=== PATIENT | female | born 1955 | race Caucasian/White ===

== ENCOUNTER → 2016-03-07 | Outpatient (CLI) | payer OTHER ==
[~2016-03-07] MED LIST: ATEN-173 PO; LRT5 PO
[2016-03-07 13:22] LABS: BLOOD UREA NITROGEN 25 mg/dl (7-18); BUN/CREATININE RATIO 24.7 (10-20); CALCIUM 9.1 mg/dl (8.5-10.1); CARBON DIOXIDE 25 mmol/L (21-32); CHLORIDE 106 mmol/L (98-107); GLUCOSE 85 mg/dl (70-99); POTASSIUM 4.2 mmol/L (3.5-5.1); SODIUM 140 mmol/L (136-145)
[2016-03-07 13:25] LABS: CHOLESTEROL 241 mg/dl (0-200); CHOLESTEROL/HDL RATIO 4.4; HDL CHOLESTEROL 55 mg/dl; LDL CHOLESTEROL CALCULATED 158 mg/dl; TRIGLYCERIDES 139 mg/dl (0-150); VERY LOW DENSITY LIPOPROT CALC 28 mg/dl
== END | disposition home or self-care (01) ==
LOC: C.LABPVFM 07:32
PROVIDERS: ATTEND Nurse Practitioner
DX: I10 Essential (primary) hypertension (principal); E78.00 Pure hypercholesterolemia, unspecified

== ENCOUNTER → 2016-03-11 | Outpatient (CLI) | payer OTHER | END | disposition home or self-care (01) | LOC: C.LABPVFM 09:25 | PROVIDERS: ATTEND Nurse Practitioner | DX: Z11.59 Encounter for screening for other viral diseases (principal) ==

== ENCOUNTER → 2016-04-28 | Outpatient (CLI) | payer OTHER ==
--- NOTE | 2016-04-28 13:55 | MAMMOGRAPHY REPORT ---
BILATERAL DIGITAL SCREENING MAMMOGRAM WITH CAD: 04/28/2016 CLINICAL HISTORY: Routine screening examination. TECHNIQUE: Bilateral CC and MLO views were obtained. Current study was also evaluated with a Comput er Aided Detection (CAD) system. COMPARISON: Comparison is made to exams dated: 04/25/2015 mammogram, 04/20/2014 mammogram, 02/12/2012 m ammogram, 12/06/2008 mammogram, 02/06/2011 mammogram, and 01/30/2010 mammogram - [facility]. BREAST COMPOSITION: The tissue of both breasts is almost entirely fatty. FINDINGS: There are a few scattered stable benign-appearing microcalcifications in the breasts. No suspicious mass, architectural distortion or cluster of microcalcifications is seen. IMPRESSION: ACR BI-RADS CATEGORY 1: NEGATIVE There is no mammographic evidence of malignancy. A 1 year screening mammogram is recommended. The p atient will receive written notification of the results. Approximately 10% of breast cancers are not detected with mammography. A negative mammographic repor t should not delay biopsy if a clinically suggestive mass is present. Alicja Brownlee M.D. ay/:04/28/2016 12:54:32 Adjuster Arbitrator: Elo RAUSCH(Sanjeev)(Rudy), [facility] letter sent: Normal 1/2 BI-RADS Code: ACR BI-RADS Category 1: Negative
--- NOTE | 2016-05-15 11:57 | CODING QUERY MEDICAL NECESSITY ---
SUPPORTING DIAGNOSIS NEEDED A supporting diagnosis is required for the test/procedure performed on this patient in order for us to be reimbursed by the patient's insurance. Please provide a supporting diagnosis for the following test/procedure listed below next to the test name along with your signature. *If there is no additional diagnosis for this patient that would support the following test/procedure please document that below next to the test/procedure. Test(s)/Procedure(s) that require a supporting diagnosis: * DXA BONE DENSITY DIAGNOSIS: * DOS: 04/28/16 Provider Signature: Date: Thank you Brandy Stark Health Information Management Once completed, please kindly fax back to [phone] For questions please call [phone]
== END | disposition home or self-care (01) ==
LOC: C.MAMM 08:54
PROVIDERS: ATTEND Nurse Practitioner
DX: Z00.00 Encounter for general adult medical examination without abnormal findings (principal); Z12.31 Encounter for screening mammogram for malignant neoplasm of breast; Z87.81 Personal history of (healed) traumatic fracture; Z78.0 Asymptomatic menopausal state

== ENCOUNTER → 2016-08-29 | Outpatient (CLI) | payer OTHER ==
[2016-08-29 13:22] LABS: BLOOD UREA NITROGEN 20 mg/dl (7-18); BUN/CREATININE RATIO 22.2 (10-20); CALCIUM 9.2 mg/dl (8.5-10.1); CARBON DIOXIDE 28 mmol/L (21-32); CHLORIDE 109 mmol/L (98-107); CHOLESTEROL 123 mg/dl (0-200); CREATININE 0.91 mg/dl (0.60-1.20); GLUCOSE 89 mg/dl (70-99); POTASSIUM 4.5 mmol/L (3.5-5.1); SODIUM 142 mmol/L (136-145); TRIGLYCERIDES 68 mg/dl (0-150); VERY LOW DENSITY LIPOPROT CALC 14 mg/dl
[2016-08-29 13:25] LABS: CHOLESTEROL/HDL RATIO 2.5; HDL CHOLESTEROL 50 mg/dl; LDL CHOLESTEROL CALCULATED 59 mg/dl
== END | disposition home or self-care (01) ==
LOC: C.LABPVFM 07:30
PROVIDERS: ATTEND Nurse Practitioner
DX: E78.00 Pure hypercholesterolemia, unspecified (principal); I10 Essential (primary) hypertension

== ENCOUNTER 2017-02-04 22:45 | Emergency (ER) | payer OTHER ==
[2017-02-04 22:48] VITALS: TEMP 36.8
--- NOTE | 2017-02-04 23:03 | EMERGENCY ROOM VISIT NOTE ---
ED Visit Note First contact with patient: 23:01 CHIEF COMPLAINT: Bleeding vein on right leg HISTORY OF PRESENT ILLNESS: This 59-year-old female presents to the emergency room with complaint of bleeding varicose vein that started at approximately 9 PM this evening. Patient has some mental delay at baseline and lives with her nephew, who is her POA, she went to him when she noticed blood on her pants. The bleeding stopped shortly after the incident. Patient denies any pain to the area. She has several varicose veins on her leg. She denies any previous bleeding from varicose veins in the past. No fevers, vomiting, recent illness, chest pain, shortness of breath. She does not take any blood thinners. REVIEW OF SYSTEMS: Review of systems is limited due to patient's mental state , her nephew provides much of the history. PMH: Reviewed in chart SOCIAL HISTORY: Patient living at home with her nephew. Non-smoker, no alcohol or drug use. PHYSICAL EXAM: Vital Signs: Reviewed Nurse's notes. Patient is alert, no distress, pleasant and cooperative during exam. There are multiple small varicose veins noted on the right lateral thigh, pinpoint area of scabbing noted that is suspected to be where the bleeding came from. There is no active bleeding. There is no tenderness to palpation. EMERGENCY DEPARTMENT COURSE: I examined the patient. There is no active bleeding from varicose vein. The area was gently cleansed using chlorhexidine scrub, then 3 layers of Dermabond were applied over the wound. The patient tolerated this well, with hemostasis preserved. The patient's nephew was instructed regarding signs of infection to monitor for as well as management if the bleeding should return. He was also encouraged to follow up with the PCP for further management. Patient's nephew verbalized understanding of all discharge instructions and plan. The patient was discharged home in stable condition with her nephew. Medication Reconciliation: I attest that I have personally reviewed the patient' s current medication list. Blood pressure screening: The patient was found to have an elevated blood pressure and was referred to their primary doctor for recheck and further treatment. I discussed the patient with Dr. Hood, who also independently examined the patient and agrees with my assessment and plan. Current/Historical Medications Scheduled Atenolol (Tenormin), 25 MG PO DAILY Atorvastatin (Lipitor), 40 MG PO DAILY Allergies Uncoded Allergies: NKDA (Allergy, Mild, 08/21/07) Vital Signs Date Time Temp Pulse Resp B/P (MAP) Pulse Ox O2 Delivery O2 Flow Rate FiO2 02/05/17 00:52 62 127/60 93 02/04/17 22:48 36.8 61 20 153/83 98 Room Air Departure Information Impression Primary Impression: Bleeding from varicose veins of right lower extremity Dispostion Home / Self-Care Condition GOOD Referrals Erin Schwab C.R.NEstherP (PCP) Patient Instructions ED Laceration Ext Skin Glue, ED Veins Varicose, My [facility] Additional Instructions You have been seen in the ER for bleeding varicose veins. The Dermabond (skin glue) will come off on its own over the next 5-7 days. You may shower like normal, but do not scrub the area or apply any ointments or lotions to the glue, as this may cause it to dissolve prematurely. If the area starts to bleed again, hold direct pressure for 5-10 minutes. You may also apply cold compress to the area and elevate to help stop bleeding. Return for any signs of infection (increasing redness, swelling, drainage, fever ), or for return of bleeding that you cannot stop at home. Follow-up with your PCP regarding ongoing management of your varicose veins. If they continue to cause problems, you may consider seeing a vascular surgeon to surgically addressed the varicose veins.
[2017-02-04] MEDS ORDERED: ATOR-24 PO (23:33)
--- NOTE | 2017-02-05 00:13 | EMERGENCY ROOM VISIT NOTE ---
ED Visit Note First contact with patient: 23:01 I saw this patient in conjunction with BERLIN [place]. I agree with her decision making and treatment plan.
[2017-02-05 00:52] VITALS: BP 127/60; PULSE 62; O2SAT 93
== END 2017-02-05 00:54 | disposition home or self-care (01) ==
LOC: C.EDB 22:47 → C.EDC 02-05 00:54
DX: I83.91 Asymptomatic varicose veins of right lower extremity (principal); Z79.899 Other long term (current) drug therapy

== ENCOUNTER → 2017-03-02 | Outpatient (CLI) | payer OTHER ==
[~2017-03-02] MED LIST changes: +ATOR-24 PO; -LRT5 PO
[2017-03-02 12:44] LABS: BLOOD UREA NITROGEN 26 mg/dl (7-18); CALCIUM 9.2 mg/dl (8.5-10.1); CARBON DIOXIDE 27 mmol/L (21-32); CHOLESTEROL 122 mg/dl (0-200); CREATININE 0.87 mg/dl (0.60-1.20); GLUCOSE 94 mg/dl (70-99); POTASSIUM 4.5 mmol/L (3.5-5.1); SODIUM 139 mmol/L (136-145)
[2017-03-02 12:48] LABS: LDL CHOLESTEROL CALCULATED 58 mg/dl
== END | disposition home or self-care (01) ==
LOC: C.LABPVFM 07:37
PROVIDERS: ATTEND Nurse Practitioner
DX: I10 Essential (primary) hypertension (principal); E78.00 Pure hypercholesterolemia, unspecified

== ENCOUNTER → 2017-04-30 | Outpatient (CLI) | payer OTHER ==
--- NOTE | 2017-04-30 15:07 | MAMMOGRAPHY REPORT ---
BILATERAL DIGITAL SCREENING MAMMOGRAM TOMOSYNTHESIS WITH CAD: 04/30/2017 CLINICAL HISTORY: Routine screening. Patient has no complaints. TECHNIQUE: Breast tomosynthesis in addition to standard 2D mammography was performed. Current study was also evaluated with a Computer Aided Detection (CAD) system. COMPARISON: Comparison is made to exams dated: 04/28/2016 mammogram, 04/25/2015 mammogram, 04/20/2014 m ammogram, 02/22/2013 mammogram, 02/12/2012 mammogram, and 02/06/2011 mammogram - [facility] enter. BREAST COMPOSITION: The tissue of both breasts is almost entirely fatty. FINDINGS: No suspicious masses, calcifications, or areas of architectural distortion are noted in ei ther breast. There has been no significant interval change compared to prior exams. IMPRESSION: ACR BI-RADS CATEGORY 1: NEGATIVE There is no mammographic evidence of malignancy. A 1 year screening mammogram is recommended. The pa tient will receive written notification of the results. Approximately 10% of breast cancers are not detected with mammography. A negative mammographic report should not delay biopsy if a clinically suggestive mass is present. Karol Booth M.D. /:04/30/2017 12:19:47 Certified Massage Therapist: Kendra RAUSCH(Sanjeev)(Rudy), [facility] letter sent: Normal 1/2 BI-RADS Code: ACR BI-RADS Category 1: Negative
== END | disposition home or self-care (01) ==
LOC: C.MAMM 08:31
PROVIDERS: ATTEND Nurse Practitioner
DX: Z12.31 Encounter for screening mammogram for malignant neoplasm of breast (principal)

== ENCOUNTER → 2017-08-27 | Outpatient (CLI) | payer OTHER ==
[2017-08-27 13:48] LABS: BLOOD UREA NITROGEN 19 mg/dl (7-18); CALCIUM 9.3 mg/dl (8.5-10.1); CARBON DIOXIDE 29 mmol/L (21-32); CREATININE 0.89 mg/dl (0.60-1.20); GLUCOSE 98 mg/dl (70-99); POTASSIUM 4.4 mmol/L (3.5-5.1); SODIUM 141 mmol/L (136-145)
== END | disposition home or self-care (01) ==
LOC: C.LABPVFM 07:29
PROVIDERS: ATTEND Nurse Practitioner
DX: I10 Essential (primary) hypertension (principal)